=== PATIENT | male | born 1955 | race Caucasian/White ===

== ENCOUNTER → 2020-07-31 10:34 | Outpatient (CLI) | payer MEDICARE, SELFPAY ==
--- NOTE | 2020-07-31 | DI.US.S_ITS ---
PROCEDURE: US RENAL COMPLETE INDICATIONS: PROTEINURA TECHNIQUE: Real-time scanning was performed of the kidneys and bladder, with image documentation. COMPARISON: None. FINDINGS: Kidneys: Kidneys are normal in size. Right kidney measures 10.8 cm long; left kidney measures 12.8 cm long. Right renal cortical thickness is 1.2 cm; left renal cortical thickness is 1.4 cm. Renal cortical echotexture is normal. No hydronephrosis. Multiple bilateral renal cyst present largest of which is on the left measuring up to 2.0 cm. There are multiple echogenic foci present involving the right kidney which may represent small nonobstructing stones. Bladder: Pre-void bladder volume is 535 mL. Post-void residual is 48 mL. Pre-void images demonstrate no intraluminal masses or stones. On pre-void images, bilateral ureteral jets are noted with color Doppler interrogation. (Of note, ureteral jets may not be detectable in up to 25% of cases due to insufficient differences in specific gravity between ureteral and bladder urine). Miscellaneous: No free pelvic fluid. IMPRESSION: 1. Bilateral renal cyst and possible multiple nonobstructing right renal calcifications. 2. 40 cc postvoid residual. Dictated by: Dragan LOERA Interpreted: Jose Juan Trotter MD on 07/31/2020 at 12:53 Approved by: Jose Juan Trotter M.D. on 07/31/2020 at 14:14
== END ==
PROVIDERS: PCP Internal Medicine Nephrology; Referring Provider Internal Medicine Nephrology; Visit Provider Internal Medicine Nephrology
DX: R80.9 Proteinuria, unspecified (principal); N28.1 Cyst of kidney, acquired; L93.0 Discoid lupus erythematosus
CPT/HCPCS: 76770